=== PATIENT | male | born 1970 | race Caucasian/White ===

== ENCOUNTER 2018-05-18 09:51 | Emergency (ER) | payer OTHER ==
[2018-05-18] MEDS ORDERED: diphenhydrAMINE 50 MG/ML SDV IVPUSH ONE (10:15)
[2018-05-18] MEDS ORDERED: Lactated Ringers 1,000 ML IV ONE (10:15)
[2018-05-18] MEDS ORDERED: Ketorolac 30 MG/ML SDV IVPUSH ONE (10:15)
--- NOTE | 2018-05-18 10:34 | EDM.PDOC ---
ED HPI GENERAL MEDICAL PROBLEM - General Chief Complaint: Genitourinary Problem Stated Complaint: KIDNEY STONE Time Seen by Provider: 05/18/18 10:15 Source of Information: Reports: Patient History Limitations: Reports: No Limitations - History of Present Illness INITIAL COMMENTS - FREE TEXT/NARRATIVE: Patient comes emergency department today with complaints of left-sided flank pain. He has had a kidney stone in the past and this feels just like it. He woke this morning with severe cramping intermittent pain in his right flank. It does not radiate into his abdomen. Does not radiate to his right groin. There is no bulge or pain in his scrotum or testicles. He has had nausea no vomiting. Yesterday he was without complaints. No diarrhea. No fever no chills. He has had urinary frequency without dysuria or hematuria. Left Flank Pain Score (Numeric/FACES): 9 - Related Data Allergies Allergy/AdvReac Type Severity Reaction Status Date / Time shellfish derived Allergy throat Verified 05/18/18 10:11 problems Home Meds: Home Meds Lisinopril/Hydrochlorothiazide [Lisinopril-Hctz 20-12.5 mg Tab] 2 tab PO DAILY 05/18/18 [History] ED ROS GENERAL - Review of Systems Review Of Systems: ROS reveals no pertinent complaints other than HPI. ED EXAM, RENAL/ - Physical Exam Exam: See Below General Appearance: Moderate Distress (rolling around in the bed and moaning in pain. ) Ears: Normal External Exam Nose: Normal Inspection Throat/Mouth: Normal Inspection, Normal Lips, Normal Oropharynx Head: Atraumatic, Normocephalic Neck: Normal Inspection, Supple, Non-Tender Respiratory/Chest: No Respiratory Distress, Lungs Clear, Normal Breath Sounds, No Accessory Muscle Use Cardiovascular: Normal Peripheral Pulses, Regular Rate, Rhythm GI/Abdominal: Normal Bowel Sounds, Soft, Non-Tender (Male) Exam: Deferred Rectal (Males) Exam: Deferred Back Exam: Normal Inspection. No: CVA Tenderness (L), CVA Tenderness (R) Extremities: Normal Inspection, Normal Range of Motion, Normal Capillary Refill Neurological: Alert, Oriented, Normal Cognition, No Motor/Sensory Deficits Psychiatric: Anxious Skin Exam: Dry, Intact, Normal Color, Pallor Course - Vital Signs Last Recorded V/S: Last Vital Signs Temp 37.3 C 05/18/18 12:09 Pulse 74 05/18/18 12:09 Resp 16 05/18/18 12:09 BP 166/102 H 05/18/18 12:09 Pulse Ox 99 05/18/18 12:09 - Orders/Labs/Meds Labs: Laboratory Tests 05/18/18 05/18/18 05/18/18 Range/Units 10:00 10:20 10:20 WBC 17.7 H (5.0-10.0) 10^3/uL RBC 5.05 (4.6-6.2) 10^6/uL Hgb 17.0 (14.0-18.0) g/dL Hct 48.2 (40.0-54.0) % MCV 95.4 (80-100) fL MCH 33.7 (27.0-34.0) pg MCHC 35.3 H (33.0-35.0) g/dL Plt Count 253 (150-450) 10^3/uL Neut % (Auto) 87.9 H (42.2-75.2) % Lymph % (Auto) 6.3 L (20.5-50.1) % [place] % (Auto) 5.0 (2-8) % Eos % (Auto) 0.2 L (1.0-3.0) % Baso % (Auto) 0.6 (0.0-1.0) % Sodium 136 (135-145) mmol/L Potassium 3.6 (3.6-5.0) mmol/L Chloride 100 L (101-111) mmol/L Carbon Dioxide 23.0 (21.0-31.0) mmol/L Anion Gap 16.6 BUN 17 (7-18) mg/dL Creatinine 1.2 (0.6-1.3) mg/dL Est Cr Clr Drug Dosing 72.04 mL/min Estimated GFR (MDRD) > 60 BUN/Creatinine Ratio 14.16 Glucose 109 H (74-105) mg/dL Calcium 9.6 (8.4-10.2) mg/dl Total Bilirubin 1.1 H (0.2-1.0) mg/dL AST 35 (10-42) IU/L ALT 25 (10-60) IU/L Alkaline Phosphatase 50 (42-121) IU/L Total Protein 8.2 (6.7-8.2) g/dl Albumin 4.7 (3.2-5.5) g/dl Globulin 3.5 Albumin/Globulin Ratio 1.34 Urine Color Yellow (YELLOW) Urine Appearance Clear (CLEAR) Urine pH 8.5 (5.0-9.0) Ur Specific [place] 1.020 (1.005-1.030) Urine Protein 30 H (NEGATIVE) Urine Glucose (UA) Negative (NEGATIVE) Urine Ketones Negative (NEGATIVE) Urine Occult Blood Large H (NEGATIVE) Urine Nitrite Negative (NEGATIVE) Urine Bilirubin Negative (NEGATIVE) Urine Urobilinogen 0.2 (0.2-1.0) mg/dL Ur Leukocyte Esterase Negative (NEGATIVE) Urine RBC 20-30 H /HPF Urine WBC Not seen (0-5/HPF) /HPF Ur Epithelial Cells Not seen /HPF Urine Bacteria Not seen (0-FEW/HPF) /HPF Urine Mucus Rare /LPF Meds: Medications Discontinued Medications Generic Name Dose Route Start Last Admin Trade Name Freq PRN Reason Stop Dose Admin Hydrocodone Bitart/Acetaminophen 1 tab 05/18/18 12:04 05/18/18 12:11 [place] 325-5 Mg PO 05/18/18 12:05 1 tab ONETIME ONE Administration Diphenhydramine HCl 25 mg 05/18/18 10:15 05/18/18 10:36 Benadryl IVPUSH 05/18/18 10:16 25 mg ONETIME ONE Administration Lactated Ringer's 1,000 mls @ 1,000 mls/hr 05/18/18 10:15 05/18/18 10:34 Ringers, Lactated IV 05/18/18 11:14 1,000 mls/hr .BOLUS ONE Administration Ketorolac Tromethamine 30 mg 05/18/18 10:15 05/18/18 10:37 Toradol IVPUSH 05/18/18 10:16 30 mg ONETIME ONE Administration Orphenadrine Citrate 60 mg 05/18/18 10:15 05/18/18 10:41 Norflex IV 05/18/18 10:16 60 mg NOW STA Administration Tamsulosin HCl 0.4 mg 05/18/18 11:31 05/18/18 12:12 Flomax PO 05/18/18 11:32 0.4 mg ONETIME ONE Administration - Re-Assessments/Exams Free Text/Narrative Re-Assessment/Exam: 05/18/18 10:34 IV LR 1 L wide open. Ketorolac 30 mg IV push. Benadryl 25 mg IV push. Norflex 60 mg IV push. 05/18/18 12:42 The patients pain was much improved after the above therapy. CT scan moderate left sided hydroureteronephrosis secondary to a 4x6x7 mm stone at the left ureterovesical junctions. Small hiatal hernia. Colonic diverticulosis without diverticulitis. Large prostate. 05/18/18 12:44 He did take Flomax 0.5 mg orally. He refused hydrocodone for pain. I did relay the findings of the CT scan to the patient. His creatinine and other kidney function appears normal. This is a pretty good sized stone although under 10 mm there still usually able to pass the stone. If his pain is not improving over the next couple of days he needs to recheck to ensure passage of the stone. Strain his urine. I also relayed the incidental findings of diverticulosis without any diverticulitis as well as the large prostate to him. This is good to know about the future. He is comfortable with the plan and his questions answered. Departure - Departure Time of Disposition: 12:22 Disposition: Home, Self-Care 01 Clinical Impression: Kidney stone, Enlarged prostate Diverticulosis Qualifiers: Diverticulosis site: diverticulosis of large intestine Diverticulosis bleeding : diverticulosis without bleeding Qualified Code(s): K57.30 - Diverticulosis of large intestine without perforation or abscess without bleeding - Discharge Information Instructions: Low-Purine Eating Plan, Renal Colic, [id number], Kidney Stones , [id number], Pain Medicine Instructions, [id number], Diverticulosis Forms: ED Department Discharge Additional Instructions: Strain all urine. If you get a stone you can bring in for analysis. Increase fluids over the next few days. Flomax, 1 tablet a day for the next 7 days. RX given to the patient. Tylenol and or Ibuprofen as needed for pain. If pain not controlled with above. [place] 1/2-1 tab every 4 hours as needed for pain. Caution sedation. RX given to the patient. Rest over the next few days. WE did incidentally find the evidence of diverticulosis without complication remember for the future. Return to the ED if new worsening symptoms. If you do not get a stone passage or pain not improving over the next 2 days you must recheck. - Assessment/Plan Assessment:: Left kidney stone Incidental Diverticulosis. Without evidence of diverticulitis. Plan: Strain all urine. If you get a stone you can bring in for analysis. Increase fluids over the next few days. Flomax, 1 tablet a day for the next 7 days. RX given to the patient. Tylenol and or Ibuprofen as needed for pain. If pain not controlled with above. [place] 1/2-1 tab every 4 hours as needed for pain. Caution sedation. RX given to the patient. Rest over the next few days. WE did incidentally find the evidence of diverticulosis without complication remember for the future. Return to the ED if new worsening symptoms. If you do not get a stone passage or pain not improving over the next 2 days you must recheck.
[2018-05-18 11:05] LABS: ANION GAP 16.6; CHLORIDE,CL 100 mmol/L (101-111); SODIUM,NA 136 mmol/L (135-145)
[2018-05-18] MEDS ORDERED: Tamsulosin 0.4 MG Cap.ER PO ONE (11:31)
[2018-05-18] MEDS ORDERED: Acetaminophen/HYDROcodone 325-5 MG Tab PO ONE (12:04)
== END 2018-05-18 12:49 | disposition home or self-care (01) ==
LOC: DL.ED 09:51
DX: N13.2 Hydronephrosis with renal and ureteral calculous obstruction (principal); K57.30 Diverticulosis of large intestine without perforation or abscess without bleeding; Z91.013 Allergy to seafood; Z79.899 Other long term (current) drug therapy
CPT/HCPCS: 36415; 74176; 80053; 81001; 85025; 96361; 96374; 96375; 99284; A9270; J1200; J1885; J2360; J7120